=== PATIENT | female | born 1960 | race Caucasian/White ===

== ENCOUNTER 2021-03-30 16:16 | Emergency (ER) | payer OTHER, SELFPAY ==
--- NOTE | ~2021-03-30 | XR_ITS ---
EXAMINATION: XR abdomen/kub 1V INDICATION: Hematuria TECHNIQUE: Supine view of the abdomen is obtained. COMPARISON: None FINDINGS: A left internal ureteral stent is in expected position. No urolithiasis is identified. Ther e are phleboliths of the pelvis. There is mild osteoarthritis of the hips. The bowel gas pattern is n ormal. IMPRESSION: 1. No radiographic correlate for the patient's symptoms. Reviewed, dictated and finalized at location A.
--- NOTE | ~2021-03-30 | CT_ITS ---
EXAMINATION: CT abdomen pelvis w con INDICATION: Epigastric pain TECHNIQUE: Computed tomographic images of the abdomen and pelvis were obtained after the administrati on of 100 cc of Omnipaque 350 intravenous contrast. The dose-length product (DLP) was 1549.45 mGy-cm. Automated exposure control and iterative reconstruction technique were employed. COMPARISON: None available FINDINGS: The lung bases are clear. The heart size is normal. The liver, spleen, pancreas, and adrena l glands are normal. The gallbladder is surgically absent. There is mild enlargement of the common bi le duct and central intrahepatic ducts which is likely due to post cholecystectomy state. The right k idney is unremarkable. There is a left internal ureteral stent in expected position. There is mild le ft hydronephrosis. There is calcified atherosclerosis of the aorta and many of the other arteries. Th ere is no free intraperitoneal gas or evidence of bowel obstruction. There is a 5.3 x 2.5 cm rim-enha ncing fluid collection in the left inguinal region anterior to the hip flexor musculature (image 183) . There is an adjacent 1.5 cm left inguinal lymph node. There is a fat-containing umbilical hernia. T here is mild lumbar spondylosis. IMPRESSION: 1. Left internal ureteral stent in expected position with mild left hydronephrosis. 2. 5.3 x 2.5 cm rim-enhancing right inguinal fluid collection concerning for abscess. An adjacent mil dly enlarged lymph nodes likely reactive. Reviewed, dictated and finalized at location A. IMPRESSION: 1. Left internal ureteral stent in expected position with mild left hydronephro sis. 2. 5.3 x 2.5 cm rim-enhancing right inguinal fluid collection concerning for ab scess. An adjacent mildly enlarged lymph nodes likely reactive.
[2021-03-30 16:18] VITALS: BP 206/73; PULSE 90; RESP 20; TEMP 36.6; O2SAT 100
[2021-03-30 16:34] LABS: Basophils Percent Auto 0.6 % (0.2-1.2); Eosinophils Percent Auto 0.4 % (0-4.4); Hematocrit 26.8 % (37.0-47.0); Hemoglobin 8.4 g/dL (12.0-15.0); Immature Granulocyte Absolute 0.03 K/mm3 (0.00-0.031); Immature Granulocyte Percent A 0.6 % (0-0.5); Lymphocytes Percent Auto 7.5 % (18.3-44.2); Mean Corpuscular HGB Conc 31.3 g/dl (32-36); Mean Corpuscular Hemoglobin 27.9 pg (26-34); Mean Platelet Volume 9.6 fl (7.4-10.4); Monocytes Absolute Auto 0.4 K/mm3 (0.1-0.6); Neutrophils Absolute Auto 4.5 K/mm3 (1.3-6.7); Neutrophils Percent Auto 82.9 % (45.5-73.1); Platelet Count Result 144 k/mm3 (150-375); Red Blood Count 3.01 M/mm3 (4.2-5.4); Red Cell Distribution Width 18.4 % (11.5-14.5); White Blood Count 5.4 K/mm3 (4.5-10.0)
[2021-03-30 16:45] LABS: Alanine Aminotransferase 15 U/L (4-35); Alkaline Phosphatase 73 U/L (38-126); Anion Gap 13 mmol/L (8-16); Aspartate Amino Transferase 26 U/L (14-36); Bilirubin,Total 0.9 mg/dL (0.2-1.3); Blood Urea Nitrogen 13 mg/dL (7-17); Carbon Dioxide 19 mmol/L (22-30); Chloride 109 mmol/L (98-107); Estimated CRCL calculation 92 ml/min; Estimated Glomerular Filt Rate > 60; Glucose 176 mg/dL (65-110); Lipase 81 U/L (23-300); Sodium 141 mmol/L (137-145)
[2021-03-30] MEDS: SODIUM CHLORIDE 0.9% IV 1,000 ML 999 ML IV CONT (17:09)
[2021-03-30] MEDS: KETOROLAC 30 MG/ML VIAL (*BKC) IV PUSH (17:09)
[2021-03-30 17:37] LABS: Add Urine Microscopic? YES; Bilirubin Urine Negative (Negative); Blood Urine 3+ (Negative); Glucose Urine UA Negative (Negative); Ketones Urine 1+ mg/dL (Negative); Leukocyte Esterase Ur Trace LEU/UL (Negative); Nitrate Urine Positive (Negative); Protein Urine 3+ mg/dL (Negative); Specific Grav Ur 1.022 (1.001-1.035)
[2021-03-30 17:38] LABS: Appearance Urine Turbid (Clear); Color Urine Red (Yellow)
[2021-03-30 17:39] LABS: RBC Urine >75 /hpf (0-2)
[2021-03-30 17:40] LABS: Bacteria Urine Trace /hpf; Squamous Epithelial Cell Urine Few /hpf (Few)
[2021-03-30 18:24] VITALS: BP 186/68; PULSE 82; RESP 17; O2SAT 100
[2021-03-30] MEDS: MORPHINE SULFATE (*CRX) 4 MG/ML INJ IV PUSH (19:34)
[2021-03-30 19:41] VITALS: BP 172/70; PULSE 88; RESP 18; O2SAT 100
[2021-03-30] MEDS: ONDANSETRON INJ 4 MG/2 ML VIAL IV PUSH (19:41)
--- NOTE | 2021-03-30 20:36 | ED.NAVMDI ---
HPI - Nausea/Vomiting/Diarrhea General Chief complaint: Nausea/Vomiting/Diarrhea Stated complaint: abdominal pain/kidney issue Time Seen by Provider: 03/30/21 16:47 History of Present Illness HPI Narrative: Patient is a 60-year-old female who presents ER with epigastric abdominal pain. Patient reports symptoms began over the last day. She reports 1 week ago she had a left ureteral stent placed due to ureteral obstruction from lymph node enlargement. Patient has history of neuroendocrine cancer for which she is had radiation and chemotherapy. The ureteral stent was placed in [place] and patient lives in [facility]. She drove down here this week and has been on vacation with her family. She reports she started having some burning urination over the last day and is concerned she could have infection. She has no fevers or chills or sweats. She does have some nausea and vomiting. The vomiting causes her to have increased pain in her epigastrium. Reports she called her doctor who wanted her to be evaluated to make sure she does not have a urinary tract infection. Related Data Allergies Allergy/AdvReac Type Severity Reaction Status Date / Time metformin Allergy Difficulty Verified 03/30/21 17:08 Breathing Sulfa (Sulfonamide Allergy Difficulty Verified 03/30/21 17:08 Antibiotics) Breathing Review of Systems Review of Systems: All systems reviewed & are unremarkable except as noted in HPI and below Constitutional: Constitutional: Denies chills, Denies fever(s) and Denies weakness ENT: Denies nasal congestion and Denies sore throat Cardiovascular: Cardiovascular: Denies chest pain and Denies radiating jaw, neck or arm pain Respiratory: Respiratory: Denies cough, Denies dyspnea and Denies wheezing Gastrointestinal: Gastrointestinal: Reports abdominal pain, Denies diarrhea, Reports nausea and Reports vomiting Genitourinary: Genitourinary: Denies abnormal vaginal bleeding, Denies hematuria, Reports nocturia, Reports dysuria and Denies flank pain PMFSH Past Medical History Medical History (Updated 03/30/21 @ 20:44 by Wil Pryor MD) Diabetes Neuroendocrine cancer Surgical History Surgical History (Updated 03/30/21 @ 20:40 by Wil Pryor MD) H/O lymph node excision S/P ureteral stent placement Social History Social History (Updated 03/30/21 @ 20:40 by Wil Pryor MD) Smoking status: Never smoker Gender identity (if verbalized by the patient): Female Exam Narrative: GENERAL: Chronically ill-appearing, obese, and in no acute distress. HEAD: Normocephalic, atraumatic. EYES: PERRL and EOMI. ENT: Mucous membranes moist. CHEST: Clear to auscultation. No respiratory distress. HEART: Regular rate and rhythm. Normal peripheral pulses. ABDOMEN: Soft, mild to moderate epigastric pain without guarding, nondistended. Inguinal lymph node. Palpated on the left side going into the medial thigh. Skin is normal in appearance without erythema. No discernible abscess. EXTREMITIES: Normal range of motion. No edema. SKIN: Warm, dry, no rash. NEURO: Alert and oriented x3. Course Course Emergency Course: Discussed results with the patient. She reports she has known fluid collection in the left inguinal region. She has no pain in that area and there is no evidence of infection. Patient is likely having discomfort related to her stent. She has been given IV fluid as well as Toradol morphine. She is comfortable at this time. There is trace leukocyte esterase and positive nitrate on the urinalysis so I will place the patient on antibiotics as a precaution. Patient reports she is supposed to [facility] in 2 days. She reports she has no plans tomorrow as she has completed all of her stops in [place] including aquarium[place] and other locations. Urged patient to return to her home tomorrow instead taking a day rest. Patient reports that she is one driving as her sister has narcolepsy and she does not trust her
[2021-03-30 20:56] VITALS: BP 170/83; PULSE 80; RESP 18; O2SAT 100
[2021-03-30 21:31] VITALS: BP 160/74; PULSE 74; RESP 18; O2SAT 100
== END 2021-03-30 21:36 | disposition home or self-care (01) ==
PROVIDERS: Emergency Provider Emergency Medicine
DX: N39.0 Urinary tract infection, site not specified (principal); E11.9 Type 2 diabetes mellitus without complications; C7A.8 Other malignant neuroendocrine tumors; Z96.0 Presence of urogenital implants
CPT/HCPCS: 36415; 74018; 74177; 80053; 81001; 83690; 85025; 96361; 96365; 96375; 99284; J0696; J1885; J2270; J2405; J7030; Q9967